=== PATIENT | female | born 1990 | race Caucasian/White ===

== ENCOUNTER 2021-03-24 13:59 | Inpatient (IN) | payer BC, OTHER ==
[2021-03-24 15:57] LABS: Amphetamine Screen,Urine Detected (NotDetected); Barbiturate Screen,Urine Not Detected (NotDetected); Benzodiazepines Screen,Urine Detected (NotDetected); Cocaine Screen,Urine Not Detected (NotDetected); Methadone Screen, Urine Not Detected (NotDetected); Opiate Screen,Urine Not Detected (NotDetected); Oxycodone Screen, Urine Not Detected (NotDetected); Phencyclidine Screen,Urine Not Detected (NotDetected); Tricyclic Antidepressant,Urine Not Detected (NotDetected); Urn Cannabinoid Scrn Not Detected (NotDetected)
--- NOTE | 2021-03-24 16:12 | ED ---
Psych HPI - General Chief Complaint: Psychiatric Symptoms Stated Complaint: Mental health Time Seen by Provider: 03/24/21 15:10 Source: patient, RN notes reviewed Mode of arrival: ambulatory - History of Present Illness Initial Comments: This a 30-year-old female presents emergency department with chief complaint depression, suicidal ideation. Patient states that his been having increasing thoughts of harming herself she has self, cutting in the past. Patient states she is not using any recent drugs or alcohol. Patient reportedly has a long history of depression sees counselors psychiatrist therapist on medications with no relief she's had a recent breakup, change my situation which is worsening her symptoms. - Related Data Allergies Allergy/AdvReac Type Severity Reaction Status Date / Time No Known Allergies Allergy Verified 03/24/21 14:40 Review of Systems ROS Statement: Those systems with pertinent positive or pertinent negative responses have been documented in the HPI. ROS Other: All systems not noted in ROS Statement are negative. Past Medical History Past Medical History: Asthma History of Any Multi-Drug Resistant Organisms: None Reported Past Surgical History: Section Past Psychological History: ADD/ADHD, Anxiety, Bipolar, Depression, PTSD Smoking Status: Vaper Past Alcohol Use History: None Reported Past Drug Use History: None Reported General Exam General appearance: alert, in no apparent distress Head exam: Present: atraumatic, normocephalic, normal inspection Eye exam: Present: normal appearance, PERRL, EOMI. Absent: scleral icterus, conjunctival injection, periorbital swelling ENT exam: Present: normal exam, normal oropharynx, mucous membranes moist Neck exam: Present: normal inspection, full ROM. Absent: tenderness, meningismus, lymphadenopathy Respiratory exam: Present: normal lung sounds bilaterally. Absent: respiratory distress, wheezes, rales, rhonchi, stridor Cardiovascular Exam: Present: regular rate, normal rhythm, normal heart sounds. Absent: systolic murmur, diastolic murmur, rubs, gallop, clicks Neurological exam: Present: alert Psychiatric exam: Present: depressed Course Vital Signs 03/24/21 14:31 Temperature 98.4 F Pulse Rate 93 Respiratory 18 Rate Blood Pressure 119/68 O2 Sat by Pulse 98 Oximetry Medical Decision Making - Medical Decision Making Patient was evaluated by psychiatric services will be admitted for further treatment. - Lab Data Lab Results 03/24/21 03/24/21 Range/Units 15:30 15:30 Urine HCG, Qual Not Detected (Not Detectd) Urine Opiates Screen Not Detected (NotDetected) Ur Oxycodone Screen Not Detected (NotDetected) Urine Methadone Screen Not Detected (NotDetected) Ur Propoxyphene Screen Not Detected (NotDetected) Ur Barbiturates Screen Not Detected (NotDetected) U Tricyclic Antidepress Not Detected (NotDetected) Ur Phencyclidine Scrn Not Detected (NotDetected) Ur Amphetamines Screen Detected H (NotDetected) U Methamphetamines Scrn Detected H (NotDetected) U Benzodiazepines Scrn Detected H (NotDetected) Urine Cocaine Screen Not Detected (NotDetected) U Marijuana (THC) Screen Not Detected (NotDetected) Disposition Clinical Impression: Depression, Suicidal ideation Disposition: TRANSFER TO PSYCH HOSP/UNIT Referrals: None,Stated [Primary Care Provider] - 1-2 days Time of Disposition: 17:05
[2021-03-24] MEDS ORDERED: MAGNESIUM HYDROXIDE 2,400 MG/10 ML CUP PO PRN (18:28)
[2021-03-24] MEDS ORDERED: ACETAMINOPHEN TAB 325 MG TAB PO PRN (18:28)
[2021-03-24] MEDS ORDERED: MAG HYDROX/AL HYDROX/SIMETH 30 ML CUP PO PRN (18:28)
[2021-03-24] MEDS ORDERED: LORazepam 2 MG/ML INJ IM PRN (18:39)
[2021-03-24] MEDS ORDERED: HALOPERIDOL LACTATE 5 MG/ML 1 ML VIAL IM PRN (18:40)
[2021-03-24] MEDS: LORazepam 1 MG TAB PO PRN (20:45)
--- NOTE | 2021-03-24 20:45 | P.CONS ---
History of Present Illness - Reason for Consult Consult date: 03/24/21 - History of Present Illness The patient is a 30-year-old female with a PMH of depression and mild intermittent asthma who presented to the emergency room with aggressive thoughts and suicidal ideation. The patient was admitted with mental health unit where she was seen and evaluated. The patient reported that she had been cutting herself on her arms and had been thinking of ways as how to harm herself further. She asked her boyfriend for help who then contacted EMS and the patient was brought to the hospital. The patient denied any physical complaints at the time of interview. She denied chest discomfort, shortness of breath, fever, chills, cough, nausea, vomiting, diarrhea. She reports history of substance use with methamphetamine and benzodiazepines use. She denied tobacco use or alcohol use. Review of systems: Pertinent positives and negatives as discussed in HPI, a complete review of systems was performed and all other systems are negative. Physical examination: General: non toxic, no distress, appears at stated age, normal weight Derm: no unusual rashes/lesions no unusual ecchymoses, warm, dry Head: atraumatic, normocephalic, symmetric Eyes: EOMI, no lid lag, anicteric sclera, pupils equal round reactive to light ENT: Nose and ears atraumatic, no thrush, no pharyngeal erythema Neck: No thyromegaly, no cervical lymphadenopathy, trachea midline, supple Mouth: no lip lesion, mucus membranes moist Cardiovascular: S1S2 reg, no murmur, positive posterior tibial pulse bilateral, no edema, capillary refill less than 2 seconds Lungs: CTA bilateral, no rhonchi, no rales , no accessory muscle use Abdominal: soft, nontender to palpation, no guarding, no appreciable organomegaly, normal bowel sounds Ext: no gross muscle atrophy, muscle strength 5 out of 5 in all 4 extremities grossly, no contractures, Neuro: CN II-XI grossly intact, light touch intact all 4 extremities, finger to nose within normal limits, Psych: Alert, oriented, depressed affect Assessment/plan Mild intermittent asthma -Albuterol inhaler when necessary Polysubstance abuse -Strongly advised on importance of cessation Depression and suicidal ideation -As per psychiatry Thank you for allowing us to participate in the care of this patient. We will follow peripherally. Do not hesitate to contact us with questions. Someone can be reached from the [facility] hospitalist group at all hours of the day at [phone]. Past Medical History Past Medical History: Asthma History of Any Multi-Drug Resistant Organisms: None Reported Past Surgical History: Section Past Psychological History: ADD/ADHD, Anxiety, Bipolar, Depression, PTSD Smoking Status: Vaper Past Alcohol Use History: None Reported Past Drug Use History: None Reported Medications and Allergies Home Medications Medication Instructions Recorded Confirmed Type Methylphenidate HCl [Ritalin] 5 mg PO DAILY@1200 03/24/21 03/24/21 History Methylphenidate HCl [Ritalin] 10 mg PO DAILY 03/24/21 03/24/21 History Venlafaxine HCl ER [Effexor Xr] 75 mg PO DAILY 03/24/21 03/24/21 History busPIRone HCl [Buspar] 5 mg PO BID 03/24/21 03/24/21 History Allergies Allergy/AdvReac Type Severity Reaction Status Date / Time sertraline [From Zoloft] AdvReac Hallucinati Verified 03/24/21 17:56 ons Physical Exam Vitals: Vital Signs Temp Pulse Resp BP Pulse Ox 03/24/21 14:31 98.4 F 93 18 119/68 98 Intake and Output 03/24/21 03/24/21 03/24/21 06:59 14:59 22:59 Other: Weight 68.039 kg Results Labs: Abnormal Lab Results - Last 24 Hours (Table) 03/24/21 Range/Units 15:30 Ur Amphetamines Screen Detected H (NotDetected) U Methamphetamines Scrn Detected H (NotDetected) U Benzodiazepines Scrn Detected H (NotDetected)
[2021-03-24] MEDS: ETHINYL ESTRADIOL PO SCH (20:51)
[2021-03-24] MEDS: LEVONORGESTREL PO SCH (20:51)
[2021-03-24 22:03] LABS: Amorphous Sediment,Urine Rare /hpf; Appearance,Urine Clear (Clear); Bacteria,Urine Few /hpf; Bilirubin,Urine Negative (Negative); Blood,Urine Small (Negative); Color,Urine Yellow; Glucose,Urine (UA) Negative (Negative); Ketones,Urine Negative (Negative); Leukocyte Esterase,Urine Negative (Negative); Mucus,Urine Moderate /hpf; Nitrite,Urine Negative (Negative); PH, Urine 6.5 (5.0-8.0); Protein,Urine Trace (Negative); Specific Gravity,Urine 1.026 (1.001-1.035); Squamous Epithelial Cell,Urine 4 /hpf (0-4); Urobilinogen,Urine <2.0 mg/dL (<2.0); WBC,Urine 7 /hpf (0-5)
[2021-03-25] MEDS ORDERED: ALBUTEROL HFA INHALER INHALATION PRN (02:23)
[2021-03-25] MEDS: NICOTINE 14MG/24HR PATCH TRANSDERM SCH (08:19)
[2021-03-25 10:55] LABS: Basophils % (A) 1 %; Eosinophils # (A) 0.3 k/uL (0-0.7); Eosinophils % (A) 4 %; HCT 38.7 % (34.0-46.0); HGB 12.7 gm/dL (11.4-16.0); Lymphocytes # (A) 2.1 k/uL (1.0-4.8); Lymphocytes % (A) 30 %; MCH 30.2 pg (25.0-35.0); MCHC 32.8 g/dL (31.0-37.0); Mean Platelet Volume 7.6; Monocytes # (A) 0.4 k/uL (0-1.0); Monocytes % (A) 6 %; Neutrophils # (A) 3.9 k/uL (1.3-7.7); Neutrophils % (A) 56 %; Platelet Count 417 k/uL (150-450); RBC 4.21 m/uL (3.80-5.40); RDW 12.4 % (11.5-15.5); WBC 6.9 k/uL (3.8-10.6)
[2021-03-25] MEDS ORDERED: DIVALPROEX ER 500 MG TAB.ER.24H PO STA (11:02)
[2021-03-25 11:06] LABS: ALT 16 U/L (4-34); AST 19 U/L (14-36); African American GFR (CKD) >90 (>60 ml/min/1.73 sqM); Albumin 4.4 g/dL (3.5-5.0); Alkaline Phosphatase 53 U/L (38-126); Anion Gap 12 mmol/L; Blood Urea Nitrogen 15 mg/dL (7-17); Calcium 9.7 mg/dL (8.4-10.2); Carbon Dioxide 24 mmol/L (22-30); Chloride 102 mmol/L (98-107); Glucose 97 mg/dL (74-99); Non-African American GFR(CKD) 85 (>60 ml/min/1.73 sqM); Potassium 4.5 mmol/L (3.5-5.1); Sodium 138 mmol/L (137-145); Total Bilirubin 0.2 mg/dL (0.2-1.3); Total Protein 7.5 g/dL (6.3-8.2)
--- NOTE | 2021-03-25 11:16 | P.HP ---
Psychiatric H&P - . H&P Date: 03/25/21 History & Physical: Allergies Allergy/AdvReac Type Severity Reaction Status Date / Time sertraline [From Zoloft] AdvReac Hallucinati Verified 03/24/21 17:56 ons Vital Signs Temp 100.0 F H 03/24/21 19:05 Pulse 74 03/24/21 19:05 Resp 16 03/24/21 19:05 BP 136/84 03/24/21 19:05 Pulse Ox 98 03/24/21 14:31 Intake & Output 03/24/21 03/25/21 03/25/21 18:59 06:59 18:59 Weight 68.039 kg Laboratory Last Values WBC 6.9 k/uL (3.8-10.6) 03/25/21 10:19 RBC 4.21 m/uL (3.80-5.40) 03/25/21 10:19 Hgb 12.7 gm/dL (11.4-16.0) 03/25/21 10:19 Hct 38.7 % (34.0-46.0) 03/25/21 10:19 MCV 92.0 fL (80.0-100.0) 03/25/21 10:19 MCH 30.2 pg (25.0-35.0) 03/25/21 10:19 MCHC 32.8 g/dL (31.0-37.0) 03/25/21 10:19 RDW 12.4 % (11.5-15.5) 03/25/21 10:19 Plt Count 417 k/uL (150-450) 03/25/21 10:19 MPV 7.6 03/25/21 10:19 Neutrophils % 56 % 03/25/21 10:19 Lymphocytes % 30 % 03/25/21 10:19 Monocytes % 6 % 03/25/21 10:19 Eosinophils % 4 % 03/25/21 10:19 Basophils % 1 % 03/25/21 10:19 Neutrophils # 3.9 k/uL (1.3-7.7) 03/25/21 10:19 Lymphocytes # 2.1 k/uL (1.0-4.8) 03/25/21 10:19 Monocytes # 0.4 k/uL (0-1.0) 03/25/21 10:19 Eosinophils # 0.3 k/uL (0-0.7) 03/25/21 10:19 Basophils # 0.0 k/uL (0-0.2) 03/25/21 10:19 Urine Color Yellow 03/24/21 15:29 Urine Appearance Clear (Clear) 03/24/21 15: Urine pH 6.5 (5.0-8.0) 03/24/21 15:29 Ur Specific [place] 1.026 (1.001-1.035) 03/24/21 15:29 Urine Protein Trace (Negative) H 03/24/21 15:29 Urine Glucose (UA) Negative (Negative) 03/24/21 15: Urine Ketones Negative (Negative) 03/24/21 15: Urine Blood Small (Negative) H 03/24/21 15: Urine Nitrite Negative (Negative) 03/24/21 15: Urine Bilirubin Negative (Negative) 03/24/21 15: Urine Urobilinogen <2.0 mg/dL (<2.0) 03/24/21 15:29 Ur Leukocyte Esterase Negative (Negative) 03/24/21 15:29 Urine WBC 7 /hpf (0-5) H 03/24/21 15:29 Ur Squamous Epith Cells 4 /hpf (0-4) 03/24/21 15:29 Amorphous Sediment Rare /hpf (None) H 03/24/21 15:29 Urine Bacteria Few /hpf (None) H 03/24/21 15:29 Urine Mucus Moderate /hpf (None) H 03/24/21 15:29 Urine HCG, Qual Not Detected (Not Detectd) 03/24/21 15:30 Urine Opiates Screen Not Detected (NotDetected) 03/24/21 15:30 Ur Oxycodone Screen Not Detected (NotDetected) 03/24/21 15:30 Urine Methadone Screen Not Detected (NotDetected) 03/24/21 15:30 Ur Propoxyphene Screen Not Detected (NotDetected) 03/24/21 15:30 Ur Barbiturates Screen Not Detected (NotDetected) 03/24/21 15:30 U Tricyclic Antidepress Not Detected (NotDetected) 03/24/21 15:30 Ur Phencyclidine Scrn Not Detected (NotDetected) 03/24/21 15:30 Ur Amphetamines Screen Detected (NotDetected) H 03/24/21 15:30 U Methamphetamines Scrn Detected (NotDetected) H 03/24/21 15:30 U Benzodiazepines Scrn Detected (NotDetected) H 03/24/21 15:30 Urine Cocaine Screen Not Detected (NotDetected) 03/24/21 15:30 U Marijuana (THC) Screen Not Detected (NotDetected) 03/24/21 15:30 Coronavirus (PCR) Not Detected (Not Detectd) 03/24/21 17:22 03/25/21 11:06 Initial evaluation History of present illness Parul is a 30-year-old female with long history of mental illness Patient states that she's been diagnosed with depressive disorder and attention deficit disorder since dismantler Patient reports that she's been cutting on herself ever since younger age She says that her recent stressor has been where her new relationship with her boyfriend broke up She had recently moved from [place] with her boyfriend and was with him for about 5 months until they decided to call it quits She reports that she has a tendency to step out of the relationship where she starts text stating and sending pictures of herself and also admits to having sexual addiction She states that her boyfriend now has trouble trusting her Patient reports that she is in outpatient treatment and is also in counseling She says that she is currently on Effexor or ER 75 mg daily buspirone 5 mg twice a day and a stimulant for ADHD she does not know the dosage Patient admits that she was having suicidal thoughts and decided to bring herself to the hospital with her ex boyfriend's help Past history personal and social history: The patient reports that 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 Patient has her hair dyed jet red Patient is alert and oriented to time place and person Her speech is clear and coherent and relevant Her thought processes are goal-directed sequential and logical There is no evidence of any overt psychosis Patient self-esteem and confidence are low Patient denies any auditory or visual hallucinations Patient's formal and operational judgment are appropriate and forward thinking Patient does seem to have some insight into her problem Patient appears to be motivated for treatment Cognitively she appears to be intact Diagnostic impression: Adjustment disorder with mixed emotional features Major depressive disorder chronic with acute exacerbation Borderline personality disorder Relationship problems Plan: The patient meets the criteria for inpatient psychiatric hospitalization and treatment and is motivated for treatment 2 patient was suggested for a mood stabilizer and has agreed to start Depakote ER 500 mg daily to start within titrated to response We will also continue Effexor ER 75 mg daily as priesthood prescribed We'll hold off on the stimulant at this time Patient also participated on the [facility] individual milieu group and other activities Approximately the stay would be 3-5 days Keron Odonnell M.D. 03/25/2021
[2021-03-25] MEDS: VENLAFAXINE HCL ER 150 MG CAP PO SCH (11:26)
[2021-03-25] MEDS: LORazepam 1 MG TAB PO PRN (17:01)
[2021-03-25 17:31] LABS: Chol/HDL Ratio 2.98 Ratio; LDL Cholesterol,Calculated 109.3 mg/dL (0.0-131.0); VLDL Calculation 19.52 mg/dL (5.00-40.00)
[2021-03-25] MEDS: LEVONORGESTREL PO SCH (20:36)
[2021-03-25] MEDS: ETHINYL ESTRADIOL PO SCH (20:36)
[2021-03-26 06:47] VITALS: RESP 18; TEMP 97.6
[2021-03-26] MEDS: VENLAFAXINE HCL ER 150 MG CAP PO SCH (08:19)
[2021-03-26] MEDS: NICOTINE 14MG/24HR PATCH TRANSDERM SCH (08:19)
--- NOTE | 2021-03-26 11:15 | P.PN ---
Progress Note - Text Progress Note Date: 03/26/21 Interval History: Patient was seen resting in bed and was directable and agreeable to speak with insurance underwriter sales in the office., She is feeling better. She is reporting she is not reporting any auditory or visual hallucinations. She is denying any paranoia or delusions. The patient has been adherent with the medications is not endorsing any significant side effects at this time. Patient does admit that she has significant issues regarding her mood lability, anger, and issues with self- esteem. She does report a long history of self-harm. We discussed at length borderline personality disorder and what that entails. We discussed at length with the patient would benefit most from dialectical behavioral therapy. Patient appears to be future oriented. Mental Status Exam: General Appearance: Patient appears to be stated age is alert, directable, and cooperative. The patient has dyed red colored hair. Behavior: Patient is calmly seated without any agitated behavior. Speech: Patient's speech is fluent and nonpressured. Mood/Affect: Mood is improving mildly, affect is congruent and constricted. Suicidality/Homicidality: Patient denies having any suicidal or homicidal ideation intent or plan. Perceptions: Patient denies any visual hallucinations and denies any auditory hallucinations Though content/process: There is no evidence of any delusional thought content and thought process is linear and goal-directed. Memory and concentration: AOX3, grossly intact for the purposes of this session Judgment and insight: Improving mildly Vital Signs Temp 97.6 F 03/26/21 06:45 Pulse 96 03/26/21 06:45 Resp 18 03/26/21 06:45 BP 84/50 03/26/21 06:45 Pulse Ox 98 03/24/21 14:31 Intake & Output 03/25/21 03/26/21 03/26/21 18:59 06:59 18:59 Weight 68.039 kg Laboratory Results - Last 24 Hours 03/25/21 03/25/21 10:19 10:[address] Glu mg/dL 117 Hemoglobin A1c 5.7 Triglycerides 97.60 Cholesterol 194.00 LDL Cholesterol, Calc 109.3 VLDL Cholesterol, Calc 19.52 HDL Cholesterol 65.20 H Cholesterol/HDL Ratio 2.98 TSH 0.565 Assessment Major depressive disorder, recurrent, severe Borderline personality disorder ADHD Cannabis use disorder Plan: -Patient continues to meet criteria for inpatient psychiatric admission for symptom stabilization and safety. Patient has signed adult voluntary form and medication consent and was placed in patient's chart. -Medications: Continue Effexor XR 150 mg by mouth daily for management of depression/anxiety -When necessary Ativan and Haldol for agitation/aggression. -NRT - nicotine patch -SW on board for discharge planning. Encouraged the patient to participate in milieu.
[2021-03-26] MEDS: LORazepam 1 MG TAB PO PRN ×2 (12:18→20:23)
[2021-03-26 12:19] VITALS: BP 113/64; PULSE 87
[2021-03-26] MEDS: ETHINYL ESTRADIOL PO SCH (20:20)
[2021-03-26] MEDS: LEVONORGESTREL PO SCH (20:20)
[2021-03-26] MEDS ORDERED: diphenhydrAMINE 25 MG CAP PO STA (21:36)
[2021-03-27] MEDS: VENLAFAXINE HCL ER 150 MG CAP PO SCH (08:43)
[2021-03-27] MEDS: NICOTINE 14MG/24HR PATCH TRANSDERM SCH (08:43)
[2021-03-27] MEDS: LORazepam 1 MG TAB PO PRN (09:45)
--- NOTE | 2021-03-27 10:22 | P.DS ---
Providers Date of admission: 03/24/21 18:19 Expected date of discharge: 03/27/21 Attending physician: Collin Carmona MD Consults: 03/24/21 18:34 Consult Physician Routine Consulting Provider: Bora Veras Consult Reason/Comments: medical management Do you want consulting provider notified?: Yes Primary care physician: Stated None - Discharge Diagnosis(es) (1) Major depressive disorder Current Visit: Yes Status: Acute Priority: High (2) Borderline personality disorder Current Visit: Yes Status: Chronic Priority: Medium (3) Cannabis use disorder, mild, abuse Current Visit: Yes Status: Chronic Priority: Medium (4) Nicotine dependence Current Visit: Yes Status: Chronic Priority: Medium (5) ADHD Current Visit: No Status: Chronic Priority: Medium Hospital Course: Admission HPI: Parul is a 30-year-old female with long history of mental illness Patient states that she's been diagnosed with depressive disorder and attention deficit disorder since process manager Patient reports that she's been cutting on herself ever since younger age She says that her recent stressor has been where her new relationship with her boyfriend broke up She had recently moved from [place] with her boyfriend and was with him for about 5 months until they decided to call it quits She reports that she has a tendency to step out of the relationship where she starts text stating and sending pictures of herself and also admits to having sexual addiction She states that her boyfriend now has trouble trusting her Patient reports that she is in outpatient treatment and is also in counseling She says that she is currently on Effexor or ER 75 mg daily buspirone 5 mg twice a day and a stimulant for ADHD she does not know the dosage Patient admits that she was having suicidal thoughts and decided to bring herself to the hospital with her ex boyfriend's help Hospital course: Upon admission to the unit patient was initially presenting with worsening depression and suicidal ideation in the context of a recent breakup. Furthermore, the patient provided a history to the initial psychiatric provider of self-harm and instability in relationships. Patient was however directable and agreeable to commence treatment. Patient got along well with other patients on the unit and followed unit protocol. Patient was compliant with the medications and denied any side effects throughout hospital course. Patient was started on her home medication of Effexor for management of her depression and anxiety. Ritalin was held during this admission. Initially, the patient was to be started on Depakote however this was discontinued. Patient spoke of her stressors and engaged in therapy both group and individual. Patient was also seen by medical team for history and physical exam. When evaluated by the psychiatric provider, we discussed at length her diagnoses and provided the patient was psychoeducation on borderline personality disorder. Supportive psychotherapy was given. The Effexor was gradually titrated to final dose 150 mg by mouth daily. Over the course the hospital physician, the patient despite significant improvement in regards to her mood, anxiety, sleep, and tolerated the medication changes well. She displayed better insight and judgment. On the day of discharge, the patient is not reporting any suicidal or homicidal ideation, intention, and/or plan. She is not reporting any auditory or visual hallucinations. She denies any paranoia or other delusions. The patient reports wanting to live for her health and for her family. She denies any access to firearms or other weapons. The patient does have a history of marijuana use however was counseled on abstaining from all substances including alcohol and marijuana. The patient was further educated on the risks, benefits, and treatment alternatives of the medications that she is currently taking and was encouraged to follow-up with outpatient appointments for psychiatry and for primary care. Prior to discharge, family meeting will be arranged by social services coordinator to answer questions and ensure safety. Mental status exam: General Appearance: Patient appears to be stated age is alert, pleasant, and cooperative. Patient is in no acute distress and has fair hygiene and grooming. Patient has red dyed hair and multiple tattoos. Behavior: Patient is calmly seated without any agitated behavior. Eye contact is appropriate. Psychomotor activity is normal. Speech: Patient's speech is fluent and nonpressured. Mood/Affect: Patient reports their mood is "much better", affect is congruent and euthymic to bright. Suicidality/Homicidality: Patient denies having any suicidal or homicidal ideation intent or plan. Perceptions: Patient denies any auditory or visual hallucinations. Though content/process: There is no evidence of any delusional thought content and thought process is linear and goal-directed. Patient is future oriented. Memory and concentration: AOX3, grossly intact for the purposes of this session. Can spell "WORLD" backwards correctly. Judgment and insight: Improved Vital Signs Temp 97.6 F 03/26/21 06:45 Pulse 87 03/26/21 12:18 Resp 18 03/26/21 06:45 BP 113/64 03/26/21 12:18 Pulse Ox 98 03/24/21 14:31 Impression: Major depressive disorder Borderline personality disorder Nicotine dependence Cannabis use ADHD Plan: -Continue with discharge today as patient has improved and stabilized psychiatrically and is not currently an imminent threat to herself and/or others. Patient will remain at chronically elevated risk due to her impulsivity. -Continue medications: Effexor XR 150 mg by mouth daily for management depression/anxiety. Habitrol patches nicotine cessation. -Patient was counseled on the need for medication compliance and appropriate follow-up at mental health and also primary care for medical issues. Patient verbalized understanding and agreed. -Social work to arrange for and conduct family meeting to ensure safety upon discharge and answer any questions/concerns. Social work also to arrange for patients follow up appointments with [facility] oncology social worker for psychiatric care along with follow up with primary care provider. -Patient counseled on abstaining from recreational drugs and marijuana and alcohol. Was informed/educated on the adverse effects on their physical and mental health. Patient verbally agreed and understood. Patient was offered subs tance abuse treatment however declined at this time. -Patient was instructed to return to the hospital or seek immediate medical care if their psychiatric or medical symptoms do worsen or reoccur. -Psychoeducation and supportive therapy provided to patient. Risks and benefits of pharmacological treatment versus the risks and benefits of nontreatment weight and discussed. Informed consent discussion held. Common side effects of psychotropics discussed such as, but not limited to headache, GI disturbance, sexual dysfunction, movement disorders, sedation, and orthostatic hypotension. Life threatening and blackbox warnings of prescribed medications also discussed. Potential risks of operating a vehicle or heavy machinery discussed with patient at length. Advised on importance of compliance and a reliable and responsible manner. Patient advised to review FDA consumer labeling of all medications prior to taking. Patient verbalized understanding of potential risks, and agrees with current treatment plan. Patient advised to medically contact physician/emergency personnel if any acute changes in condition occur. Laboratory Results WBC 6.9 k/uL (3.8-10.6) 03/25/21 10:19 RBC 4.21 m/uL (3.80-5.40) 03/25/21 10:19 Hgb 12.7 gm/dL (11.4-16.0) 03/25/21 10:19 Hct 38.7 % (34.0-46.0) 03/25/21 10:19 MCV 92.0 fL (80.0-100.0) 03/25/21 10:19 MCH 30.2 pg (25.0-35.0) 03/25/21 10:19 MCHC 32.8 g/dL (31.0-37.0) 03/25/21 10:19 RDW 12.4 % (11.5-15.5) 03/25/21 10:19 Plt Count 417 k/uL (150-450) 03/25/21 10:19 MPV 7.6 03/25/21 10:19 Neutrophils % 56 % 03/25/21 10:19 Lymphocytes % 30 % 03/25/21 10:19 Monocytes % 6 % 03/25/21 10:19 Eosinophils % 4 % 03/25/21 10:19 Basophils % 1 % 03/25/21 10:19 Neutrophils # 3.9 k/uL (1.3-7.7) 03/25/21 10:19 Lymphocytes # 2.1 k/uL (1.0-4.8) 03/25/21 10:19 Monocytes # 0.4 k/uL (0-1.0) 03/25/21 10:19 Eosinophils # 0.3 k/uL (0-0.7) 03/25/21 10:19 Basophils # 0.0 k/uL (0-0.2) 03/25/21 10:19 Sodium 138 mmol/L (137-145) 03/25/21 10:19 Potassium 4.5 mmol/L (3.5-5.1) 03/25/21 10:19 Chloride 102 mmol/L (98-107) 03/25/21 10:19 Carbon Dioxide 24 mmol/L (22-30) 03/25/21 10:19 Anion Gap 12 mmol/L 03/25/21 10:19 BUN 15 mg/dL (7-17) 03/25/21 10:19 Creatinine 0.92 mg/dL (0.52-1.04) 03/25/21 10:19 Est GFR (CKD-EPI)AfAm >90 (>60 ml/min/1.73 sqM) 03/25/21 10:19 Est GFR (CKD-EPI)NonAf 85 (>60 ml/min/1.73 sqM) 03/25/21 10:19 Glucose 97 mg/dL (74-99) 03/25/21 10:[address] Glu mg/dL 117 03/25/21 10:19 Hemoglobin A1c 5.7 % (4.0-6.0) 03/25/21 10:19 Calcium 9.7 mg/dL (8.4-10.2) 03/25/21 10:19 Total Bilirubin 0.2 mg/dL (0.2-1.3) 03/25/21 10:19 AST 19 U/L (14-36) 03/25/21 10:19 ALT 16 U/L (4-34) 03/25/21 10:19 Alkaline Phosphatase 53 U/L (38-126) 03/25/21 10:19 Total Protein 7.5 g/dL (6.3-8.2) 03/25/21 10:19 Albumin 4.4 g/dL (3.5-5.0) 03/25/21 10:19 Triglycerides 97.60 mg/dL (0.00-149.00) 03/25/21 10:19 Cholesterol 194.00 mg/dL (0.00-200.00) 03/25/21 10:19 LDL Cholesterol, Calc 109.3 mg/dL (0.0-131.0) 03/25/21 10:19 VLDL Cholesterol, Calc 19.52 mg/dL (5.00-40.00) 03/25/21 10:19 HDL Cholesterol 65.20 mg/dL (40.00-60.00) H 03/25/21 10:19 Cholesterol/HDL Ratio 2.98 Ratio 03/25/21 10:19 TSH 0.565 mIU/L (0.465-4.680) 03/25/21 10:19 Urine Color Yellow 03/24/21 15:29 Urine Appearance Clear (Clear) 03/24/21 15: Urine pH 6.5 (5.0-8.0) 03/24/21 15:29 Ur Specific [place] 1.026 (1.001-1.035) 03/24/21 15:29 Urine Protein Trace (Negative) H 03/24/21 15:29 Urine Glucose (UA) Negative (Negative) 03/24/21 15: Urine Ketones Negative (Negative) 03/24/21 15: Urine Blood Small (Negative) H 03/24/21 15:29 Urine Nitrite Negative (Negative) 03/24/21 15: Urine Bilirubin Negative (Negative) 03/24/21 15: Urine Urobilinogen <2.0 mg/dL (<2.0) 03/24/21 15:29 Ur Leukocyte Esterase Negative (Negative) 03/24/21 15:29 Urine WBC 7 /hpf (0-5) H 03/24/21 15:29 Ur Squamous Epith Cells 4 /hpf (0-4) 03/24/21 15: Amorphous Sediment Rare /hpf (None) H 03/24/21 15:29 Urine Bacteria Few /hpf (None) H 03/24/21 15: Urine Mucus Moderate /hpf (None) H 03/24/21 15:29 Urine HCG, Qual Not Detected (Not Detectd) 03/24/21 15:30 Urine Opiates Screen Not Detected (NotDetected) 03/24/21 15:30 Ur Oxycodone Screen Not Detected (NotDetected) 03/24/21 15:30 Urine Methadone Screen Not Detected (NotDetected) 03/24/21 15:30 Ur Propoxyphene Screen Not Detected (NotDetected) 03/24/21 15:30 Ur Barbiturates Screen Not Detected (NotDetected) 03/24/21 15:30 U Tricyclic Antidepress Not Detected (NotDetected) 03/24/21 15:30 Ur Phencyclidine Scrn Not Detected (NotDetected) 03/24/21 15:30 Ur Amphetamines Screen Detected (NotDetected) H 03/24/21 15:30 U Methamphetamines Scrn Detected (NotDetected) H 03/24/21 15:30 U Benzodiazepines Scrn Detected (NotDetected) H 03/24/21 15:30 Urine Cocaine Screen Not Detected (NotDetected) 03/24/21 15:30 U Marijuana (THC) Screen Not Detected (NotDetected) 03/24/21 15:30 Coronavirus (PCR) Not Detected (Not Detectd) 03/24/21 17:22 Allergies Allergy/AdvReac Type Severity Reaction Status Date / Time sertraline [From Zoloft] AdvReac Hallucinati Verified 03/25/21 14:57 ons Patient Condition at Discharge: Stable Plan - Discharge Summary Discharge Rx Participant: Yes New Discharge Prescriptions: New Venlafaxine HCl ER [Effexor XR] 150 mg PO DAILY 30 Days capsule Nicotine 14Mg/24Hr Patch [Habitrol] 1 patch TRANSDERM DAILY 30 Days patch Continue Methylphenidate HCl [Ritalin] 10 mg PO DAILY Methylphenidate HCl [Ritalin] 5 mg PO DAILY@1200 Discontinued busPIRone HCl [Buspar] 5 mg PO BID Venlafaxine HCl ER [Effexor Xr] 75 mg PO DAILY Discharge Medication List Methylphenidate HCl [Ritalin] 5 mg PO DAILY@1200 03/24/21 [History] Methylphenidate HCl [Ritalin] 10 mg PO DAILY 03/24/21 [History] Nicotine 14Mg/24Hr Patch [Habitrol] 1 patch TRANSDERM DAILY 30 Days patch 03/27/21 [Rx] Venlafaxine HCl ER [Effexor XR] 150 mg PO DAILY 30 Days capsule 03/27/21 [Rx] Follow up Appointment(s)/Referral(s): [facility] [Outside] - 04/11/21 2:00 pm ([place]ox[facility] via [facility] ) [facility] Week Patient Instructions/Handouts: How to Stop Smoking (DC), Depression (DC) Activity/Diet/Wound Care/Special Instructions: Activity and diet as tolerated. Avoid the use of street drugs and alcohol. Take all medications as prescribed. When you are in need of refills on your medications please contact your medical provider and/or outpatient psychiatrist to have this done. Please go to scheduled outpatient appointment for aftercare treatment. If symptoms return or become worse, call the crisis line at and/or go to the nearest emergency room for evaluation Discharge Disposition: HOME SELF-CARE
== END 2021-03-27 12:32 | disposition home or self-care (01) | DRG 881 ==
LOC: EC 13:59 → 3MHU 18:19
PROVIDERS: ADMIT Psychiatry & Neurology Psychiatry; ATTEND Psychiatry & Neurology Psychiatry
DX: F32.9 Major depressive disorder, single episode, unspecified (principal); R45.851 Suicidal ideations; F43.23 Adjustment disorder with mixed anxiety and depressed mood; F12.10 Cannabis abuse, uncomplicated; Z71.51 Drug abuse counseling and surveillance of drug abuser; F19.10 Other psychoactive substance abuse, uncomplicated; F17.210 Nicotine dependence, cigarettes, uncomplicated; F43.10 Post-traumatic stress disorder, unspecified; F60.3 Borderline personality disorder; F90.9 Attention-deficit hyperactivity disorder, unspecified type; J45.20 Mild intermittent asthma, uncomplicated; Z79.899 Other long term (current) drug therapy; Z91.52 Personal history of nonsuicidal self-harm; Z20.822 Contact with and (suspected) exposure to COVID-19; Z88.8 Allergy status to other drugs, medicaments and biological substances
CPT/HCPCS: 80053; 80061; 80306; 81001; 81025; 82075; 83036; 84443; 85025; 87635; 99285